=== PATIENT | male | born 1960 | race Caucasian/White ===

== ENCOUNTER 2018-06-24 08:00 | Inpatient (IN) | payer OTHER ==
[~2018-06-24] VITALS: Ht 177.8 cm; Wt 99.8 kg
[~2018-06-24 08:00] MED LIST: AMBIEN5 MG PO; CELEBREX50 MG PO; CIMBALTA PO
[2018-06-28] MEDS ORDERED: CYMBALTA30 MG PO (08:21)
[2018-07-03] MEDS ORDERED: MUPIROCIN15 GM TOP (12:40)
[2018-07-03] MEDS ORDERED: LEVSIN/SL0.125 MG SL (12:40)
[2018-07-03] MEDS ORDERED: INTESTINEX680 M1 PO (12:41)
[2018-07-03] MEDS ORDERED: PERCOCET 5-3251 EACH PO (12:42)
== END 2018-07-03 13:42 | disposition home or self-care (01) | DRG 330 ==
LOC: SURH 06-28 05:49 → O/R 06-28 05:49 → SURH 06-28 08:00
PROVIDERS: ADMIT Surgery
PROC: 07TB4ZZ Resection of Mesenteric Lymphatic, Percutaneous Endoscopic Approach (ICD-10-PCS; 2018-06-28)
PROC: 0DNV4ZZ Release Mesentery, Percutaneous Endoscopic Approach (ICD-10-PCS; 2018-06-28)
PROC: 0DTK4ZZ Resection of Ascending Colon, Percutaneous Endoscopic Approach (ICD-10-PCS; principal; 2018-06-28 10:30)
DX: C18.2 Malignant neoplasm of ascending colon (principal); C77.9 Secondary and unspecified malignant neoplasm of lymph node, unspecified; D62 Acute posthemorrhagic anemia; K66.0 Peritoneal adhesions (postprocedural) (postinfection); R59.0 Localized enlarged lymph nodes; E66.01 Morbid (severe) obesity due to excess calories

== ENCOUNTER 2019-07-24 09:01 | Day surgery (SDC) | payer OTHER ==
[~2019-07-24 09:01] MED LIST changes: +CYMBALTA30 MG PO; +INTESTINEX680 M1 PO; +LEVSIN/SL0.125 MG SL; +MUPIROCIN15 GM TOP; +PERCOCET 5-3251 EACH PO
== END 2019-07-24 16:55 | disposition home or self-care (01) ==
LOC: AMB-ENDOS 09:01 → ADM 14:00 → AMB-ENDOS 14:00
PROVIDERS: ATTEND Surgery
DX: K62.89 Other specified diseases of anus and rectum (principal)